=== PATIENT | female | born 1960 | race Hispanic/Latino ===

== ENCOUNTER 2020-05-21 10:38 | Emergency (ER) | payer OTHER ==
[~2020-05-21] VITALS: Ht 160 cm; Wt 74.8 kg
--- NOTE | 2020-05-21 11:00 | Emergency Department Note ---
History of Present Illnes History of Present Illness Chief Complaint: Genitourinary History of Present Illness This is a 60 year old female with stage IV ovarian cancer here with increasing generalized weakness fatigue lightheadedness and dyspnea on exertion. Patient was told that she was anemic and needed a blood transfusion. Patient is a patient of Carmen Rivas patient is otherwise at baseline, no fever no chills no cough, no abdominal pain. Patient is on chemotherapeutic pills, no recent IV chemotherapy.. Historian: Patient Arrival Mode: Car Additional Treatment ENDOCRINOLOGY NURSE: NONE Onset (how long ago): week(s) (1) Location: diffuse Quality: generalized Radiation: Reports non-radiation Severity: moderate Onset quality: gradual Duration (how long): week(s) (1) Timing of current episode: constant Progression: worsening Chronicity: new (no prior transfusions ) Context: Reports recent illness Relieving factors: none Exacerbating factors: none Treatments prior to arrival: none Past Medical/Family History Physician Review I have reviewed the patient's past medical and family history. Any updates have been documented here. Past Medical History Recent Fever: No Clinical Suspicion of Infectio: No New/Unexplained Change in Ment: No Past Medical History: Hypertension, Cancer Other Medical History: OVARIAN STAGE 4 Past Surgical History: Hysterectomy, Pacer/AICD Other Surgery: 2018 HYSTERECOMY/TUMOR 2019 PACEMAKER/DEFIB Review of Systems Review of Systems Constitutional: Reports as per HPI EENTM: Reports no symptoms Cardiovascular: Reports no symptoms Respiratory: Reports no symptoms Gastrointestinal: Reports no symptoms Genitourinary: Reports no symptoms Musculoskeletal: Reports no symptoms Integumentary: Reports no symptoms Neurological: Reports as per HPI Psychological: Reports no symptoms Endocrine: Reports no symptoms Hematological/Lymphatic: Reports no symptoms Physical Exam Related Data Triage Vital Signs Vital Signs Date Time Temp Pulse Resp B/P (MAP) Pulse Ox O2 Delivery O2 Flow Rate FiO2 05/21/20 10:44 98.6 88 20 137/75 100 Room Air Vital signs reviewed: Yes Physical Exam CONSTITUTIONAL Constitutional: Present well-developed, Present well-nourished HENT HENT: Present normocephalic, Present atraumatic, Present oropharynx clear/moist, Present nose normal HENT L/R: Present left ext ear normal, Present right ext ear normal, Present other (pale mucosa) EYES Eyes: Reports PERRL, Reports conjunctivae normal NECK Neck: Present ROM normal PULMONARY Pulmonary: Present effort normal, Present breath sounds normal CARDIOVASCULAR Cardiovascular: Present regular rhythm, Present heart sounds normal, Present capillary refill normal, Present normal rate GASTROINTESTINAL Abdominal: Present soft, Present nontender, Present bowel sounds normal GENITOURINARY Genitourinary: Present exam deferred SKIN Skin: Present warm, Present dry MUSCULOSKELETAL Musculoskeletal: Present ROM normal NEUROLOGICAL Neurological: Present alert, Present oriented x 3, Present no gross motor or sensory deficits PSYCHOLOGICAL Psychological: Present mood/affect normal, Present judgement normal Assessment & Plan Medical Decision Making MDM Patient is a 60-year-old female that is here for generalized weakness, fatigue, known anemic and was sent here for blood transfusion. Patient is otherwise at baseline, denies fever chills nausea vomiting or any other concerns. Get H&H, transfuse as needed. Reassessment Reassessment Patient was sent for a blood transfusion, hemoglobin is 6, we'll transfuse one unit and have her follow up with oncology. Assessment & Plan Final Impression: (1) Symptomatic anemia (2) Weakness Depart Disposition: HOME, SELF-CARE Last Vital Signs Date Time Temp Pulse Resp B/P (MAP) Pulse Ox O2 Delivery O2 Flow Rate FiO2 05/21/20 10:44 98.6 88 20 137/75 100 Room Air AVI JENKINS MD May 21, 2020 11:00
[2020-05-21 11:25] LABS: BASOPHILS # (AUTO) 0.1 (0.0-0.1); BASOPHILS % 1.6 % (0.0-1.0); EOSINOPHILS # (AUTO) 0.2 (0.0-0.4); EOSINOPHILS % 2.6 % (0.0-6.0); LYMPHOCYTES # (AUTO) 1.6 (1.0-3.2); LYMPHOCYTES % 26.6 % (18.0-39.1); MEAN CORPUSCULAR VOLUME 81.9 fL (81-99); MONOCYTES # (AUTO) 0.6 (0.2-0.8); NEUTROPHILS # (AUTO) 3.6 (2.1-6.9); NEUTROPHILS % 58.7 % (38.7-80.0); PLATELET COUNT 405 x10e3/uL (140-360); RED BLOOD COUNT 2.37 x10e6/uL (3.6-5.1); RED CELL DISTRIBUTION WIDTH 15.9 % (11.7-14.4)
[2020-05-21 11:27] LABS: HEMATOCRIT 19.4 % (34.2-44.1); HEMOGLOBIN 6.4 g/dL (12.0-16.0)
[2020-05-21 11:46] LABS: ALBUMIN 4.2 g/dL (3.5-5.0); ALBUMIN/GLOBULIN RATIO 1.2 (0.8-2.0); ANION GAP 13.7 mmol/L (8-16); CALCIUM 9.2 mg/dL (8.4-10.2); CREATININE, SERUM 1.01 mg/dL (0.57-1.11); POTASSIUM 3.7 mmol/L (3.5-5.1)
--- NOTE | 2020-05-21 13:08 | NUR ---
Bedside report given to ANNEL Gamboa. Went over plan of care with patient. Pt verbalized understanding.
[2020-05-21] MEDS: SODIUM CHLORIDE 0.9% 250ML 250 ML IV ONE (13:43)
--- NOTE | 2020-05-21 13:44 | NUR ---
pt receiving blood transfusion per er md order. 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 pt on po chemo pills for cancer treatment.
== END 2020-05-21 17:13 | disposition home or self-care (01) ==
LOC: ER 10:58
DX: D64.89 Other specified anemias (principal); C56.9 Malignant neoplasm of unspecified ovary; R53.1 Weakness; Z95.810 Presence of automatic (implantable) cardiac defibrillator
CPT/HCPCS: 36415; 80053; 83880; 84484; 85025; 86850; 86900; 86920; 99284; J7050; P9016